=== PATIENT | male | born 1960 | race Caucasian/White ===

== ENCOUNTER 2024-04-18 15:14 | Emergency (ER) | payer OTHER ==
[~2024-04-18] VITALS: Ht 182.9 cm; Wt 118.4 kg
[2024-04-18] MEDS ORDERED: FAMO20TA PO (15:29)
[2024-04-18] MEDS ORDERED: SEMA2PEN SQ (15:29)
[2024-04-18] MEDS ORDERED: OMEP40CA4 PO (15:29)
[2024-04-18] MEDS ORDERED: FISH10002 PO (15:29)
[2024-04-18] MEDS ORDERED: FURO40TA2 PO (15:29)
[2024-04-18] MEDS ORDERED: METF-877 PO (15:29)
[2024-04-18] MEDS: NS 1,000 ML IV SCH (17:03)
[2024-04-18 17:05] LABS: BASO # 0.1 10^3/uL (0.0-0.2); BASO % 0.8 % (0.0-1.0); EOS # 0.2 10^3/uL (0.0-0.5); EOS % 1.9 % (0.0-3.0); HEMATOCRIT 50.1 % (42.0-52.0); HEMOGLOBIN 16.7 g/dl (13.5-17.5); LYMPH # 3.6 10^3/uL (1.5-5.0); LYMPH % 39.4 % (24.0-44.0); MEAN CORPUSCULAR HEMOGLOBIN 31.1 pg (27.0-33.0); MEAN CORPUSCULAR HGB CONC 33.3 g/dl (32.0-36.5); MEAN CORPUSCULAR VOLUME 93.3 fl (80.0-96.0); MONO % 10.8 % (2.0-8.0); NEUTROPHILS # 4.3 10^3/uL (1.5-8.5); NEUTROPHILS % 46.7 % (36.0-66.0); PLATELET COUNT, AUTOMATED 288 10^3/uL (150-450); RED BLOOD COUNT 5.37 10^6/uL (4.30-6.10); WHITE BLOOD COUNT 9.2 10^3/uL (4.0-10.0)
[2024-04-18 17:17] LABS: INR 1.01
[2024-04-18 17:29] LABS: LIPASE 54 U/L (12-53)
[2024-04-18 17:31] LABS: ALBUMIN 3.7 G/DL (3.2-5.2); ALKALINE PHOSPHATASE 128 U/L (46-116); ALT/SGPT 107 U/L (7.0-40); AST/SGOT 30 U/L (<34); BILIRUBIN,DIRECT < 0.1 MG/DL (<0.4); BILIRUBIN,TOTAL 0.3 MG/DL (0.3-1.2); BLOOD UREA NITROGEN 14 MG/DL (9-23); CALCIUM LEVEL 9.3 MG/DL (8.3-10.6); CARBON DIOXIDE LEVEL 29 MMOL/L (20-31); CHLORIDE LEVEL 106 MMOL/L (98-107); CREATININE FOR GFR 0.62 MG/DL (0.70-1.30); GLOMERULAR FILTRATION RATE > 60.0 (>49); GLUCOSE, FASTING 95 MG/DL (74-106); POTASSIUM SERUM 4.2 MMOL/L (3.5-5.1); SODIUM LEVEL 139 MMOL/L (136-145); TOTAL PROTEIN 7.1 G/DL (5.7-8.2)
[2024-04-18 18:14] VITALS: BP 129/84; TEMP 97.6; O2SAT 96
== END 2024-04-18 18:16 | disposition home or self-care (01) ==
LOC: M ED 15:14
DX: R10.9 Unspecified abdominal pain (principal); E11.9 Type 2 diabetes mellitus without complications; I10 Essential (primary) hypertension; Z86.73 Personal history of transient ischemic attack (TIA), and cerebral infarction without residual deficits; Z88.0 Allergy status to penicillin

== ENCOUNTER 2024-05-24 08:23 | Day surgery (SDC) | payer OTHER ==
[~2024-05-24] VITALS: Ht 182.9 cm; Wt 117.5 kg
[~2024-05-24 08:23] MED LIST: ATOR40TA75 PO; BUPR150T12 PO; CEPH500T PO; CYCL-707 PO; DOCU100C16 PO; DULO1CAP4 PO; FAMO20TA PO; FAMO40TA3 PO; FERR325T3 PO; FISH10002 PO; FURO20TA2 PO; FURO40TA2 PO; IBUP80TA PO; JARD1TAB3 PO; METF-877 PO; METF500T13 PO; MIRT1TAB16 PO; MYSO50TA5 PO; OMEG350C PO; OMEP-173 PO; OMEP40CA4 PO; PREG100CA PO; ROPI1TAB73 PO; SEMA2PEN SQ; TURM500C PO; VITA100054 PO
[2024-05-24] MEDS: NS 250 ML IV ONE (08:48)
[2024-05-24] MEDS ORDERED: propofoL 200 MG/20 ML VIAL As Ordered ONE (10:07)
[2024-05-24] MEDS ORDERED: LIDOCAINE 2% 100MG/5ML SDV (FOR ANES.) As Ordered ONE (10:07)
[2024-05-24 10:35] VITALS: TEMP 98
[2024-05-24 10:55] VITALS: BP 110/63; O2SAT 96
== END 2024-05-24 11:01 | disposition home or self-care (01) ==
LOC: M OPP 08:23
PROVIDERS: ATTEND Surgery
DX: K52.9 Noninfective gastroenteritis and colitis, unspecified (principal); Z86.0100 Personal history of colon polyps, unspecified; Z80.0 Family history of malignant neoplasm of digestive organs; K22.70 Barrett's esophagus without dysplasia; K29.70 Gastritis, unspecified, without bleeding; E78.5 Hyperlipidemia, unspecified; E11.9 Type 2 diabetes mellitus without complications; K21.9 Gastro-esophageal reflux disease without esophagitis; M19.90 Unspecified osteoarthritis, unspecified site; F41.9 Anxiety disorder, unspecified; F32.A Depression, unspecified; F43.10 Post-traumatic stress disorder, unspecified; Z88.0 Allergy status to penicillin; Z79.84 Long term (current) use of oral hypoglycemic drugs; Z79.85 Long-term (current) use of injectable non-insulin antidiabetic drugs; Z79.899 Other long term (current) drug therapy
CPT/HCPCS: 43239; 88305; G0105